=== PATIENT | male | born 2000 | race American Indian/Alaskan Native ===

== ENCOUNTER 2019-03-17 10:20 | Emergency (ER) | payer SELFPAY ==
[2019-03-17 10:32] VITALS: BP 133/85
--- NOTE | 2019-03-17 13:28 | Emergency Department Report ---
ED General Adult HPI - General Chief complaint: Dizziness Stated complaint: HBP/NOSE BLEED/WEAK Time Seen by Provider: 03/17/19 12:44 Source: patient, family Mode of arrival: Wheelchair Limitations: No Limitations - History of Present Illness Initial comments: This is a 18-year-old male states that around 9 AM this morning he woke up with his nose bleeding he felt dizzy and lightheaded. His grandmother checked his blood pressure and that time his blood pressure was found to be elevated 150/110. Arrival to the emergency room patient's blood pressure was 133/85 and heart rate of 102. The nosebleed subsided on its own. Patient denies any past medical history. He does admit to being under a lot of stress at this time. Denies any drug or alcohol use. He denies any recent trauma or injury. He she admits to feeling anxious and depressed he denies any suicidal or homicidal ideation. -: Sudden (nose bleed) Improves with: none Associated Symptoms: denies: chest pain, cough, diaphoresis, fever/chills, headaches, loss of appetite, malaise, nausea/vomiting, shortness of breath, syncope, weakness Treatments Prior to Arrival: none - Related Data Allergies Allergy/AdvReac Type Severity Reaction Status Date / Time No Known Allergies Allergy Verified 03/17/19 10:26 ED Review of Systems ROS: Stated complaint: HBP/NOSE BLEED/WEAK Other details as noted in HPI Comment: All other systems reviewed and negative Constitutional: denies: chills, fever ENT: epistaxis. denies: ear pain Respiratory: denies: cough, shortness of breath, SOB with exertion Cardiovascular: denies: chest pain, palpitations, dyspnea on exertion Neurological: other (dizzness). denies: headache Psychiatric: anxiety, depression ED Past Medical Hx - Past Medical History Previous Medical History?: No - Surgical History Past Surgical History?: No - Social History Smoking Status: Current Every Day Smoker Substance Use Type: None ED Physical Exam - General Limitations: No Limitations General appearance: alert, in no apparent distress - Head Head exam: Present: atraumatic - Eye Eye exam: Present: normal appearance, EOMI. Absent: scleral icterus, conjunctival injection - ENT ENT exam: Present: normal exam, normal orophraynx, mucous membranes moist, TM's normal bilaterally - Neck Neck exam: Present: normal inspection, full ROM. Absent: tenderness, lymphadenopathy - Respiratory Respiratory exam: Present: normal lung sounds bilaterally, respiratory distress - Cardiovascular Cardiovascular Exam: Present: regular rate, normal heart sounds - GI/Abdominal GI/Abdominal exam: Present: soft. Absent: distended, tenderness - Extremities Exam Extremities exam: Present: normal inspection, normal capillary refill - Back Exam Back exam: Present: normal inspection - Neurological Exam Neurological exam: Present: alert, oriented X3, normal gait - Psychiatric Psychiatric exam: Present: normal affect - Skin Skin exam: Present: warm, dry, intact, normal color ED Course Vital Signs 03/17/19 10:26 Temperature 98.8 F Pulse Rate 102 H Respiratory 18 Rate Blood Pressure 133/85 O2 Sat by Pulse 100 Oximetry ED Medical Decision Making - Lab Data Result diagrams: 03/17/19 14:35 03/17/19 14:35 - Medical Decision Making 18-year-old male complaining of dizziness and nosebleed. Nosebleed resolved at home. Orthostatics done and within normal limits CBC and CMP done and there is no acute findings. Patient admits to feeling anxious and having anxiety. Denies any suicidal or homicidal thoughts. Accompanied by his grandmother and another family member they are very supportive. I instructed to rest increased hydration follow-up with with PCP counseling as needed for anxiety and or depression. Patient very cooperative and pleasant. Critical Care Time: No Critical care attestation.: If time is entered above; I have spent that time in minutes in the direct care of this critically ill patient, excluding procedure time. ED Disposition Clinical Impression: Dizziness, nonspecific, Anxiety, Nosebleed Disposition: - TO HOME OR SELFCARE Is pt being admited?: No Does the pt Need Aspirin: No Condition: Stable Instructions: Generalized Anxiety Disorder (ED) Additional Instructions: Rest increase oral hydration follow-up with [facility] or your primary care doctor Referrals: ARMIN HOLMAN MD [Primary Care Provider] - 3-5 Days KIM PHAN MD [Staff Physician] - 3-5 Days Time of Disposition: 15:33
[2019-03-17 15:05] LABS: Hematocrit 47.3 % (35.5-45.6); Hemoglobin 16.1 gm/dl (11.8-15.2); Mean Corpuscular HGB Conc 34 % (32-34); Mean Corpuscular Volume 80 fl (84-94); Platelet Count 170 K/mm3 (140-440); Red Blood Count 5.88 M/mm3 (3.65-5.03); Red Cell Distribution Width 14.2 % (13.2-15.2)
[2019-03-17 15:27] LABS: Alanine Aminotransferase 16 units/L (7-56); Albumin 4.6 g/dL (3.9-5); BUN/Creatinine Ratio 10; Blood Urea Nitrogen 7 mg/dL (9-20); Hemolysis Index 12
== END 2019-03-17 15:39 | disposition home or self-care (01) ==
LOC: ED 10:20
DX: F41.9 Anxiety disorder, unspecified (principal); R04.0 Epistaxis
CPT/HCPCS: 36415; 80053; 85027; 99283

== ENCOUNTER 2020-03-03 12:28 | Emergency (ER) | payer OTHER ==
[2020-03-03 12:48] VITALS: BP 118/81
--- NOTE | 2020-03-03 12:50 | Emergency Department Report ---
Chief Complaint: Neck Pain/Injury Stated Complaint: BOIL Time Seen by Provider: 03/03/20 12:46 - HPI History of Present Illness: Patient is a pleasant 19-year-old -[place] male who comes to the ER today concerned for his ingrown hair in his neck. There is no abscess. He states that he has had boils before. He was told that he should get antibiotics. He has no fever or chills. He has no chest pain shortness of breath. He is ambulatory, [id number] nontoxic with normal vital signs - ROS Review of Systems: Ingrown hair on his neck - Exam Vital Signs: Vital Signs 03/03/20 12:41 Temperature 97.8 F Pulse Rate 61 Respiratory 20 Rate Blood Pressure 118/81 O2 Sat by Pulse 99 Oximetry Physical Exam: Alert and oriented x4 S1-S2 lungs clear to auscultation abdomen soft nontender Ingrown hair in his left anterior neck-no abscess. We have discussed hygiene. MSE screening note: Focused history and physical exam performed. Due to findings the following was ordered: Patient has no life threat. We have discussed the need for him to see a primary care doctor. Patient being MSE did to primary care. Patient discussed with doctor:: ODILON SALAS ED Disposition for MSE Clinical Impression: Ingrown hair Disposition: Z-07 MED SCREENING EXAM-LEFT Is pt being admited?: No Does the pt Need Aspirin: No Condition: Stable Instructions: Ingrown Hair Referrals: KIM PHAN MD [Staff Physician] - 3-5 Days Time of Disposition: 12:49
== END 2020-03-03 12:50 | disposition left against medical advice (07) ==
LOC: ED 12:28
DX: R22.1 Localized swelling, mass and lump, neck (principal); Z53.21 Procedure and treatment not carried out due to patient leaving prior to being seen by health care provider

== ENCOUNTER 2020-07-18 16:11 | Emergency (ER) | payer OTHER ==
--- NOTE | 2020-07-23 12:53 | Electrocardiograph Report ---
[facility] Test Date: 2020-07-18 Test Time: 16:17:16 Pat Name: ADI BALTAZAR Department: Room: Gender: M Engineering Systems Analyst: ROSEMARY : 2000 Requested By: NINA LEWIS Order Number: [id number] Reading MD: Carlton Palmer Measurements Intervals [place] Rate: 77 P: 84 FL: 129 QRS: 94 QRSD: 75 T: 77 QT: 345 QTc: 390 Interpretive Statements Sinus rhythm Probable left atrial enlargement No previous ECG available for comparison Electronically Signed On 07-23-2020 12:53:01 EDT by Carlton Palmer
== END 2020-07-18 17:00 | disposition left against medical advice (07) ==
LOC: ED 16:11
DX: R07.89 Other chest pain (principal); Z53.21 Procedure and treatment not carried out due to patient leaving prior to being seen by health care provider
CPT/HCPCS: 93005

== ENCOUNTER 2021-07-03 23:22 | Emergency (ER) | payer SELFPAY ==
[2021-07-04 00:40] VITALS: BP 118/81
== END 2021-07-04 17:32 | disposition left against medical advice (07) ==
LOC: ED 23:22
DX: R07.9 Chest pain, unspecified (principal); M54.9 Dorsalgia, unspecified; Z53.21 Procedure and treatment not carried out due to patient leaving prior to being seen by health care provider
CPT/HCPCS: 93005

== ENCOUNTER 2021-07-29 16:15 | Emergency (ER) | payer SELFPAY ==
[2021-07-29 17:21] LABS: Basophils # (Auto) 0.1 K/mm3 (0.0-0.1); Eosinophils # (Auto) 0.1 K/mm3 (0.0-0.4); Eosinophils % (Auto) 1.7 % (0.0-4.3); Hematocrit 46.7 % (35.5-45.6); Hemoglobin 15.8 gm/dl (11.8-15.2); Lymphocytes % (Auto) 49.6 % (13.4-35.0); Mean Corpuscular HGB Conc 34 % (32-34); Mean Corpuscular Volume 81 fl (84-94); Monocytes # (Auto) 0.4 K/mm3 (0.0-0.8); Monocytes % (Auto) 7.2 % (0.0-7.3); Platelet Count 190 K/mm3 (140-440); Red Blood Count 5.75 M/mm3 (3.65-5.03); Red Cell Distribution Width 13.7 % (13.2-15.2)
[2021-07-29 17:34] LABS: BUN/Creatinine Ratio 10; Blood Urea Nitrogen 9 mg/dL (9-20); Hemolysis Index 9
--- NOTE | 2021-07-29 21:18 | XRay Report ---
ABDOMEN 1 VIEW INDICATION / CLINICAL INFORMATION: Left abdominal and rib pain since yesterday with worsening today. Shortness of breath. COMPARISON: None available. FINDINGS: TUBES / LINES: None. BOWEL GAS PATTERN: No significant abnormality. FREE AIR / EXTRALUMINAL GAS: None seen. ADDITIONAL FINDINGS: No significant additional findings. IMPRESSION: 1. No significant abnormality. Signer Name: Bereket Toribio MD Signed: 07/29/2021 9:14 PM Workstation Name: [id number]
--- NOTE | 2021-07-29 21:48 | Emergency Department Report ---
ED Abdominal Pain HPI - General Chief Complaint: Abdominal Pain Stated Complaint: LOWER RIB PAIN Time Seen by Provider: 07/29/21 20:41 Source: patient Mode of arrival: Ambulatory Limitations: No Limitations - History of Present Illness Initial Comments: Is a 20-year-old male who presents for left flank and upper abdominal pain x3 days. States pain with deep inspiration patient denies fevers or chills no nausea or vomiting. Patient states 1 constipation stool yesterday. Patient is tolerating p.o. intake at this time there are no fevers or chills. Patient does endorse history of asthma there is no shortness of breath no cough no wheezing no stridor. Symptoms are exacerbated by movement and deep inspiration. Symptoms are relieved by nothing tried. MD Complaint: flank pain Severity scale (0 -10): 10 - Related Data Previous Rx's Medication Instructions Recorded Last Taken Type Naproxen 500 mg PO BID PRN #30 tab 07/29/21 Unknown Rx Allergies Allergy/AdvReac Type Severity Reaction Status Date / Time No Known Allergies Allergy Verified 07/29/21 16:29 ED Review of Systems ROS: Stated complaint: LOWER RIB PAIN Other details as noted in HPI Constitutional: denies: chills, fever Eyes: denies: eye pain, eye discharge, vision change ENT: denies: ear pain, throat pain Respiratory: denies: cough, shortness of breath, wheezing Cardiovascular: denies: chest pain, palpitations Endocrine: no symptoms reported Gastrointestinal: abdominal pain, constipation. denies: nausea, vomiting (Left flank), diarrhea, melena Genitourinary: denies: urgency, dysuria, frequency, hematuria, discharge Musculoskeletal: denies: back pain, joint swelling, arthralgia Skin: denies: rash, lesions Neurological: denies: headache, weakness, paresthesias, vertigo Psychiatric: denies: anxiety, depression Hematological/Lymphatic: denies: easy bleeding, easy bruising ED Past Medical Hx - Past Medical History Hx Asthma: Yes - Social History Smoking Status: Never Smoker Substance Use Type: None - Medications Home Medications: Home Medications Medication Instructions Recorded Confirmed Last Taken Type Naproxen 500 mg PO BID PRN #30 tab 07/29/21 Unknown Rx ED Physical Exam - General Limitations: No Limitations General appearance: alert, in no apparent distress - Head Head exam: Present: atraumatic, normocephalic - Eye Eye exam: Present: EOMI Pupils: Present: normal accommodation - ENT ENT exam: Present: mucous membranes moist - Neck Neck exam: Present: normal inspection, full ROM. Absent: tenderness, lymphadenopathy - Respiratory Respiratory exam: Present: normal lung sounds bilaterally. Absent: respiratory distress, wheezes, stridor, chest wall tenderness - Cardiovascular Cardiovascular Exam: Present: regular rate, normal rhythm, normal heart sounds. Absent: systolic murmur, diastolic murmur, rubs, gallop - GI/Abdominal GI/Abdominal exam: Present: soft, tenderness, normal bowel sounds. Absent: distended, guarding, rebound, rigid, bruit, hernia - Rectal Rectal exam: Present: deferred - Extremities Exam Extremities exam: Present: normal inspection, full ROM, normal capillary refill - Back Exam Back exam: Present: normal inspection, full ROM, CVA tenderness (L). Absent: CVA tenderness (R) - Neurological Exam Neurological exam: Present: alert, oriented X3, CN II-XII intact, normal gait - Expanded Neurological Exam Expanded Patient oriented to: Present: person, place, time Speech: Present: fluid speech Best Eye Response ([place]): (4) open spontaneously Best Motor Response ([place]): (6) obeys commands Best Verbal Response ([place]): (5) oriented [place] Total: 15 - Psychiatric Psychiatric exam: Present: normal affect, normal mood - Skin Skin exam: Present: warm, dry, intact, normal color. Absent: rash ED Course Vital Signs 07/29/21 16:26 Temperature 97.8 F Pulse Rate 98 H Respiratory 20 Rate Blood Pressure 109/66 [Right] O2 Sat by Pulse 100 Oximetry ED Medical Decision Making - Lab Data Result diagrams: 07/29/21 16:55 07/29/21 16:55 - Radiology Data Radiology results: report reviewed, image reviewed ABDOMEN 1 VIEW INDICATION / CLINICAL INFORMATION: Left abdominal and rib pain since yesterday with worsening today. Shortness of breath. COMPARISON: None available. FINDINGS: TUBES / LINES: None. BOWEL GAS PATTERN: No significant abnormality. FREE AIR / EXTRALUMINAL GAS: None seen. ADDITIONAL FINDINGS: No significant additional findings. IMPRESSION: 1. No significant abnormality. Signer Name: Bereket Toribio MD Signed: 07/29/2021 9:14 PM Workstation Name: [id number] Transcribed By: [place] Dictated By: Bereket Toribio MD Electronically Authenticated By: Bereket Toribio MD Signed Date/Time: 07/29/212113 DD/ 13 TD/TT: - Medical Decision Making KUB normal gas pattern, labs normal, patient denies dysuria frequency or urge ncy. Lung sounds are clear throughout there is no wheezing no shortness of breath no stridor plan NSAIDs as needed pain. Hydrate as directed, laxative of choice for constipation as needed. Follow-up with primary care doctor in 2 to 3 days. Patient verbalized agreement understanding with discharge plan. Patient DC'd home in stable condition at this time. Critical care attestation.: If time is entered above; I have spent that time in minutes in the direct care of this critically ill patient, excluding procedure time. ED Disposition Clinical Impression: Flank pain Disposition: 01 HOME / SELF CARE / HOMELESS Is pt being admited?: No Does the pt Need Aspirin: No Condition: Stable Instructions: Flank Pain, Adult, [id number] Additional Instructions: Medications as prescribed, hydrate as directed. Take laxative of choice. Follow-up with your primary care doctor in 2 to 3 days. Prescriptions: Naproxen 500 mg PO BID PRN #30 tab PRN Reason: pain Referrals: KIM PHAN MD [Staff Physician] - 3-5 Days Forms: Work/School Release Form(ED) Time of Disposition: 21:50
[2021-07-29 22:19] LABS: Bilirubin,Urine Negative (Negative); Blood,Urine Negative (Negative); Color,Urine Yellow (Yellow); Protein,Urine <15 mg/dL mg/dL (Negative); Urobilinogen,Urine < 2.0 mg/dL (<2.0)
[2021-07-29 22:44] VITALS: BP 119/73
== END 2021-07-29 23:18 | disposition home or self-care (01) ==
LOC: ED 16:15
DX: R10.12 Left upper quadrant pain (principal); J45.909 Unspecified asthma, uncomplicated
CPT/HCPCS: 36415; 74018; 80048; 81001; 82150; 83690; 85025; 99283